=== PATIENT | female | born 1965 | race African-American/Black ===

== ENCOUNTER 2018-11-06 20:28 | Emergency (ER) ==
[2018-11-06 20:37] VITALS: BMI 34.2
[2018-11-06] MEDS ORDERED: SODIUM CHLORIDE 1,000 ML IV STA (20:47)
--- NOTE | 2018-11-06 21:47 | CT ---
EXAM: Noncontrast CT of the abdomen and pelvis. HISTORY: Right flank pain. COMPARISON: None. TECHNIQUE: Contiguous axial images at 3 mm intervals were obtained from lung bases through the pelvi s. No contrast was given. Coronal reformats were reviewed. FINDINGS: The study is limited without contrast. CHEST: LUNG BASES: The lung bases show no lobar consolidation or effusion. HEART: The heart size is within normal limits. ABDOMEN: Evaluation of the soft tissue organs is limited without contrast. There are multiple anter ior abdominal wall defects containing peritoneal fat. There is herniation of a short segment of colo n without obstruction or inflammatory process. LIVER: Noncontrast images of the liver show no solid mass lesion or intrahepatic ductal dilatation. BILIARY: The gallbladder is normally distended. There are densities in the dependent portion of th e fundus of the gallbladder. No pericholecystic fluid or inflammation. The common bile duct is norm al. SPLEEN: The spleen is unremarkable. PANCREAS: The pancreas shows no mass lesion or peripancreatic inflammation. ADRENAL GLANDS: The adrenal glands are normal. RENAL: The kidneys show no hydronephrosis or nephrolithiasis. There are no obstructing ureteral st ones. No solid mass lesions are identified. AORTA: calcifications are seen. No aneurysm is identified. RETROPERITONEUM: There is no retroperitoneal or mesenteric adenopathy. BOWEL: There are postoperative changes of prior gastric bypass. No obstruction or inflammatory pro cess P The bowel is unopacified. There is no obstruction or inflammatory change. There is no free f luid or free air. No significant inflammatory changes are seen. The appendix is identified and i s normal. PELVIS: BLADDER: The bladder is well distended and appears normal. GENITOURINARY STRUCTURES: The uterus and ovaries are not seen. OSSEOUS STRUCTURES: The osseous structures are normal for age. IMPRESSION 1. Limited study without contrast.No acute intra-abdominal abnormality. No obstructing ureteral sto shirley. 2. The appendix is normal. 3. Prior gastric bypass. No evidence of obstruction. 4. Probable cholelithiasis. No pericholecystic fluid or gallbladder wall thickening. 5. Multiple ventral hernias state peritoneal fat. There is herniation of a short segment of the col on without obstruction.
--- NOTE | 2018-11-06 21:48 | CT ---
EXAM: CT chest without contrast HISTORY: Cough COMPARISON: None TECHNIQUE: Serial axial images of the chest were obtained from the lung apices to the upper abdomen without contrast. Axial scans acquired at 5 mm slice thicknesses. Coronal and sagittal sequences co mpleted FINDINGS: There is no thyroid enlargement. The visualized vessels are unremarkable without aneurysm or stenosis within limitations of a noncontrast CT.. The heart is normal in size without pericardia l effusion. There are no pathologically enlarged mediastinal or hilar lymph nodes. . There is no p ulmonary consolidation or pneumonia. Postsurgical changes/gastric bypass left upper quadrant. There is cholelithiasis seen. No adrenal e nlargement. IMPRESSION: No mediastinal or hilar adenopathy. No acute pulmonary infiltrate. Previous gastric bypass. Cholelithiasis without biliary ductal dilatation.
--- NOTE | 2018-11-06 22:22 | ED.PDOC ---
General ED Provider: Dr. RAHEEL GARCES-ER Chief Complaint: Nausea/Vomiting Stated Complaint: im hurting Time Seen by Physician: 20:30 Mode of Arrival: Walk-In Information Source: Patient Exam Limitations: No limitations Nursing and Triage Documentation Reviewed and Agree: Yes Does patient meet sepsis criteria?: No System Inflammatory Response Syndrome: Not Applicable Sepsis Protocol: For patient's 13 years and over: Temp is 96.8 and below OR 101 and greater Pulse >90 BPM Resp >20/minute Acutely Altered Mental Status Are patient's symptoms suggestive of a new infection, such as: -Pneumonia -Skin, Soft Tissue -Endocarditis -UTI -Bone, Joint Infection -Implantable Device -Acute Abdominal Infection -Wound Infection -Meningitis -Blood Stream Catheter Infection -Unknown GI Complaint Exam - Abdominal Pain Complaint/Exam Onset: Gradual Duration: 2 days Symptoms Are: Still present Timing: Constant Initial Severity: Mild Current Severity: Mild Location of Pain: Discrete, RUQ Radiates To: Reports: Back Character: Reports: Dull, Aching, Cramping Alleviating: Reports: Spontaneous resolution Associated Signs and Symptoms: Reports: Back pain, Nausea Differential Diagnoses: Bowel Obstruction, Constipation, Pancreatitis, GB Review of Systems - Review Of Systems Constitutional: Reports: No symptoms Eyes: Reports: No symptoms Ears, Nose, Mouth, Throat: Reports: No symptoms Respiratory: Reports: No symptoms Cardiac: Reports: No symptoms GI: Reports: Abdominal pain, Diarrhea, Nausea, Vomiting : Reports: No symptoms Musculoskeletal: Reports: No symptoms Skin: Reports: No symptoms Neurological: Reports: No symptoms Endocrine: Reports: No symptoms Hematologic/Lymphatic: Reports: No symptoms All Other Systems: Reviewed and Negative Past Medical History - Past Medical History Previously Healthy: Yes Endocrine: Reports: Unknown Cardiovascular: Reports: Unknown Respiratory: Reports: Unknown Hematological: Reports: Unknown Gastrointestinal: Reports: Unknown Genitourinary: Reports: Unknown Neuro/Psych: Reports: Unknown Musculoskeletal: Reports: Unknown Cancer: Reports: Unknown Last Menstrual Period: na - Surgical History General Surgical History: Reports: Gastric Bypass - Family History Family History: Reports: Unknown - Social History Smoking Status: Former smoker Hx Substance Use: ([facility]) Alcohol Screening: Occasionally - Immunizations Tetanus Shot up to Date: Yes Physical Exam - Physical Exam Appearance: Well-appearing Eyes: JENN, EOMI, Conjunctiva clear ENT: Ears normal, Nose normal, Oropharynx normal Neck: Supple Respiratory: Airway patent Cardiovascular: RRR, Pulses normal, No rub, No murmur GI/: Soft, Nontender, No masses, Bowel sounds normal, No Organomegaly Musculoskeletal: Normal strength Skin: Warm Neurological: Sensation intact, Motor intact, Reflexes intact, Cranial nerves intact, Alert, Oriented Psychiatric: Affect appropriate, Mood appropriate Interpretation - Radiology Interpretation Radiology Interpretation By: Radiologist Radiology Results: Positive Exam Interpreted: CT Scan Critical Care Note - Critical Care Note Total Time (mins): 0 Course - Course Hematology/Chemistry: 11/06/18 20:58 11/06/18 20:58 Orders, Labs, Meds: Lab Review 11/06/18 11/06/18 11/06/18 20:53 20:53 20:58 WBC 5.64 RBC 4.81 Hgb 12.6 Hct 40.7 MCV 84.6 MCH 26.2 L MCHC 31.0 L RDW Coeff of [place] 13.0 Plt Count 288 Immature Gran % (Auto) 0.5 Neut % (Auto) 68.3 Lymph % (Auto) 16.7 [place] % (Auto) 11.0 H Eos % (Auto) 2.8 Baso % (Auto) 0.7 Immature Gran # (Auto) 0.0 Neut # (Auto) 3.9 Lymph # (Auto) 0.9 [place] # (Auto) 0.6 Eos # (Auto) 0.2 Baso # (Auto) 0.0 Sodium Potassium Chloride Carbon Dioxide Anion Gap BUN Creatinine Estimated GFR (MDRD) BUN/Creatinine Ratio Glucose Calcium Total Bilirubin AST ALT Alkaline Phosphatase Total Protein Albumin Globulin Albumin/Globulin Ratio Amylase Lipase Urine Color Yellow Urine Clarity Slightly Urine pH 5.5 Ur Specific [place] 1.015 Urine Protein Trace Urine Glucose (UA) Negative Urine Ketones Negative Urine Blood 2+ Urine Nitrite Negative Urine Bilirubin Negative Urine Urobilinogen 1.0 Ur Leukocyte Esterase Trace Urine Microscopic RBC 2-5 Urine Microscopic WBC 5-10 Ur Squamous Epith Cells 10-20 Urine Bacteria Trace Urine Mucus 2+ Influ A Molecular Assay Negative by naat Influ B Molecular Assay Negative by naat 11/06/18 20:58 WBC RBC Hgb Hct MCV MCH MCHC RDW Coeff of [place] Plt Count Immature Gran % (Auto) Neut % (Auto) Lymph % (Auto) [place] % (Auto) Eos % (Auto) Baso % (Auto) Immature Gran # (Auto) Neut # (Auto) Lymph # (Auto) [place] # (Auto) Eos # (Auto) Baso # (Auto) Sodium 135.6 Potassium 3.71 Chloride 100.6 Carbon Dioxide 25.5 Anion Gap 13.21 BUN 14.6 Creatinine 0.88 Estimated GFR (MDRD) 67.00 BUN/Creatinine Ratio 16.59 Glucose 92.7 Calcium 8.93 Total Bilirubin 1.17 AST 131.4 H ALT 175.0 H Alkaline Phosphatase 232.0 H Total Protein 6.75 Albumin 4.36 Globulin 2.39 Albumin/Globulin Ratio 1.82 Amylase 58.3 Lipase 125.8 Urine Color Urine Clarity Urine pH Ur Specific [place] Urine Protein Urine Glucose (UA) Urine Ketones Urine Blood Urine Nitrite Urine Bilirubin Urine Urobilinogen Ur Leukocyte Esterase Urine Microscopic RBC Urine Microscopic WBC Ur Squamous Epith Cells Urine Bacteria Urine Mucus Influ A Molecular Assay Influ B Molecular Assay Orders Category Date Time Status ED IV/MEDIPORT/POWERPORT .ONCE EMERGENCY 11/06/18 20:47 Active AMYLASE Stat LAB 11/06/18 20:58 Completed CBC W/ AUTO DIFF Stat LAB 11/06/18 20:58 Completed COMPREHENSIVE METABOLIC PANEL Stat LAB 11/06/18 20:58 Completed FLU A/B MOLECULAR Stat LAB 11/06/18 20:53 Completed LIPASE Stat LAB 11/06/18 20:58 Completed MOLECULAR GROUP A STREP Stat LAB 11/06/18 20:53 Completed URINALYSIS C & S IF INDICATED Stat LAB 11/06/18 20:53 Completed URINE CULTURE Stat LAB 11/06/18 20:53 Received 0.9 % Sodium Chloride [Saline Flush] MEDS 11/06/18 20:47 Ordered 1 syr IVF PRN PRN Sodium Chloride 0.9% [Sodium Chloride] 1,000 ml MEDS 11/06/18 20:[address] ABDOMEN/PELVIS WO CONTRAST Stat RADS 11/06/18 20:[address] CHEST W/O CONTRAST Stat RADS 11/06/18 20:48 Completed Medications Generic Name Dose Route Start Last Admin Trade Name Freq PRN Reason Stop Dose Admin Sodium Chloride 1 syr 11/06/18 20:47 11/06/18 21:07 Saline Flush IVF 1 syr PRN PRN Administration To flush IV Discontinued Medications Generic Name Dose Route Start Last Admin Trade Name Freq PRN Reason Stop Dose Admin Sodium Chloride 1,000 mls @ 1,000 mls/hr 11/06/18 20:47 11/06/18 21:05 Sodium Chloride IV 11/06/18 21:46 1,000 mls/hr BOLUS STA Administration Vital Signs: Temp Pulse Resp BP Pulse Ox 11/06/18 20:29 99.5 F 105 H 20 135/85 97 Departure - Departure Time of Disposition: 22:23 Disposition: TSF SHORT-TRM HOSP Discharge Problem: Cholelithiasis Qualifiers: Cholelithiasis location: gallbladder Cholecystitis presence: without cholecystitis Biliary obstruction: without biliary obstruction Qualified Code(s) : K80.20 - Calculus of gallbladder without cholecystitis without obstruction Instructions: Gallstones (ED) Condition: Good Pt referred to PMD for follow-up: Yes IPMP verified?: No Allergies/Adverse Reactions: Allergies No Known Allergies Allergy (Unverified 11/06/18 20:43) Home Medications: Ambulatory Orders 1 [No Reported Medications] 11/06/18 Transfer Form Completed: Yes Disposition Discussed With: Patient, Family
[2018-11-06 22:35] VITALS: BP 135/89; TEMP 98
== END 2018-11-06 23:07 | disposition short-term general hospital (02) ==
LOC: ED 20:28
DX: K80.20 Calculus of gallbladder without cholecystitis without obstruction (principal); Z98.84 Bariatric surgery status
CPT/HCPCS: 36415; 80053; 81001; 82150; 83690; 85025; 87086; 87502; 87651; 96360; 99285

== ENCOUNTER 2019-03-02 19:00 | Emergency (ER) ==
[2019-03-02 19:08] VITALS: BP 148/90; TEMP 98.9; BMI 36.9
--- NOTE | 2019-03-02 19:20 | ED.PDOC ---
General ED Provider: Dr. RAHEEL GARCES-ER Chief Complaint: Earache Stated Complaint: elizabeth had trouble hearing from the ear and it hurts Time Seen by Physician: 19:18 Mode of Arrival: Walk-In Information Source: Patient Exam Limitations: No limitations Nursing and Triage Documentation Reviewed and Agree: Yes Does patient meet sepsis criteria?: No System Inflammatory Response Syndrome: Not Applicable Sepsis Protocol: For patient's 13 years and over: Temp is 96.8 and below OR 101 and greater Pulse >90 BPM Resp >20/minute Acutely Altered Mental Status Are patient's symptoms suggestive of a new infection, such as: -Pneumonia -Skin, Soft Tissue -Endocarditis -UTI -Bone, Joint Infection -Implantable Device -Acute Abdominal Infection -Wound Infection -Meningitis -Blood Stream Catheter Infection -Unknown EENT Complaint Exam - Ear Complaint/Exam Onset/Duration: 2 days Symptoms Are: Still present Timing: Constant Initial Severity: Mild Current Severity: Mild Character: Reports: Dull pain, Aching pain, Throbbing pain Alleviating: Reports: None Associated Signs and Symptoms: Reports: Hearing loss Vesicles to External Pinna: No Vesicles to Tragus: No TMJ Tenderness: Right Mastoid Tenderness: None Tragal Tenderness: None External Canal: Normal Tympanic Membrane: Dullness Differential Diagnoses: TMJ Syndrome, Serous Otitis Review of Systems - Review Of Systems Constitutional: Reports: No symptoms Eyes: Reports: No symptoms Ears, Nose, Mouth, Throat: Reports: No symptoms Respiratory: Reports: No symptoms Cardiac: Reports: No symptoms GI: Reports: No symptoms : Reports: No symptoms Musculoskeletal: Reports: No symptoms Skin: Reports: No symptoms Neurological: Reports: No symptoms Endocrine: Reports: No symptoms Hematologic/Lymphatic: Reports: No symptoms All Other Systems: Reviewed and Negative Past Medical History - Past Medical History Previously Healthy: Yes Endocrine: Reports: Unknown Cardiovascular: Reports: Unknown Respiratory: Reports: Unknown Hematological: Reports: Unknown Gastrointestinal: Reports: Unknown Genitourinary: Reports: Unknown Neuro/Psych: Reports: Unknown Musculoskeletal: Reports: Unknown Cancer: Reports: Unknown Last Menstrual Period: PT HAS HAD A HYSTERECTOMY - Surgical History General Surgical History: Reports: Gastric Bypass - Family History Family History: Reports: Unknown - Social History Smoking Status: Former smoker Hx Substance Use: No ([facility]) Alcohol Screening: Occasionally Physical Exam - Physical Exam Appearance: Well-appearing, No pain distress, Well-nourished Eyes: JENN, EOMI, Conjunctiva clear ENT: Ears normal, Nose normal, Oropharynx normal Neck: Supple Respiratory: Airway patent, Breath sounds clear, Breath sounds equal, Respirations nonlabored Cardiovascular: RRR, Pulses normal, No rub, No murmur GI/: Soft, Nontender, No masses, Bowel sounds normal, No Organomegaly Musculoskeletal: Normal strength, ROM intact, No edema, No calf tenderness Skin: Warm, Dry, Normal color Neurological: Sensation intact, Motor intact, Reflexes intact, Cranial nerves intact, Alert, Oriented Psychiatric: Affect appropriate, Mood appropriate Critical Care Note - Critical Care Note Total Time (mins): 0 Course - Course Vital Signs: Temp Pulse Resp BP Pulse Ox 03/02/19 19:01 98.9 F 101 H 18 148/90 H 97 Departure - Departure Time of Disposition: :19 Disposition: HOME SELF-CARE Discharge Problem: TMJ (temporomandibular joint disorder) Serous otitis media Qualifiers: Chronicity: acute Laterality: right Recurrence: non-recurrent Qualified Code(s) : H65.01 - Acute serous otitis media, right ear Instructions: Serous Otitis Media (ED) Condition: Good Pt referred to PMD for follow-up: Yes IPMP verified?: No Additional Instructions: augmentin 875mg bid x 7 days plus toradol 10mg qid prn pain #16---f/u with pcp - -consider ent referral if not improving Allergies/Adverse Reactions: Allergies No Known Allergies Allergy (Verified 03/02/19 19:07) Home Medications: Ambulatory Orders 1 [No Reported Medications] 11/06/18 Disposition Discussed With: Patient, Family
== END 2019-03-02 19:35 | disposition home or self-care (01) ==
LOC: ED 19:00
DX: H65.01 Acute serous otitis media, right ear (principal); M26.609 Unspecified temporomandibular joint disorder, unspecified side
CPT/HCPCS: 99282